=== PATIENT | male | born 1975 | race Caucasian/White ===

== ENCOUNTER 2017-08-30 22:55 | Emergency (ER) | payer OTHER ==
[~2017-08-30] VITALS: Ht 188 cm; Wt 143.2 kg
[~2017-08-30 22:55] MED LIST: ADVIL200 MG PO; ALPRAZOLAM0.5 MG PO; ASPIR-LOW81 MG PO; Ecotrin PO; FUROSEMIDE20 MG PO; LEXAPRO20 MG PO; LITE COAT ASPI325 M1 PO; NAPROXEN500 MG PO; NITROSTAT0.4 MG SL; NOHOMEMEDS
[2017-08-30 23:54] LABS: HEMATOCRIT 41.4 % (38.0-50.0); HEMOGLOBIN 14.9 G/DL (12.5-16.6); MCV 86.1 FL (86-99); PLATELET COUNT 256 K/uL (156-360); RBC DIS.WIDTH-CV 12.1 % (11.8-14.6); RBC DIS.WIDTH-SD 37.9 % (39-53); RED BLOOD COUNT 4.81 M/uL (4.00-5.50); WHITE BLOOD COUNT 9.7 K/uL (4.1-10.2)
[2017-08-31 00:03] LABS: CHLORIDE 110 mEq/L (99-109); POTASSIUM 3.8 mEq/L (3.7-5.4); SODIUM 142 mEq/L (136-147)
[2017-08-31 00:04] LABS: GLUCOSE 108 mg/dL (70-99)
[2017-08-31 00:08] LABS: CREATININE 0.8 mg/dL (0.6-1.3); GFR ESTIMATE (CALCULATED) > 59 mL/min/ (58.99-99999)
[2017-08-31 00:09] LABS: UREA NITROGEN (BUN) 10 mg/dL (9-23)
[2017-08-31 00:14] LABS: TROP-I INTERPRETATION NEGATIVE; TROPONIN-I < 0.01 ng/mL (0.0-0.30)
[2017-08-31 02:54] LABS: TROP-I INTERPRETATION NEGATIVE; TROPONIN-I < 0.01 ng/mL (0.0-0.30)
[2017-08-31 03:51] VITALS: BP 111/64
== END 2017-08-31 04:02 | disposition home or self-care (01) ==
LOC: EME 22:55
PROVIDERS: Emergency Medicine
DX: R07.9 Chest pain, unspecified (principal); F41.0 Panic disorder [episodic paroxysmal anxiety]; R00.2 Palpitations; R68.84 Jaw pain; R20.2 Paresthesia of skin; I45.10 Unspecified right bundle-branch block; Z79.82 Long term (current) use of aspirin; Z87.891 Personal history of nicotine dependence
CPT/HCPCS: 71046; 80048; 84484; 85025; 85027; 93005; 99281; 99284